=== PATIENT | female | born 1950 ===

== ENCOUNTER 2021-02-12 14:26 | Outpatient (REF) | payer MEDICARE, BC, SELFPAY | END 2021-02-12 14:27 | disposition home or self-care (01) | LOC: LBN 14:26 | PROVIDERS: Visit Provider Nurse Practitioner Family | DX: R35.0 Frequency of micturition (principal) | CPT/HCPCS: 87077; 87086; 87186 ==

== ENCOUNTER 2024-04-16 22:44 | Outpatient (REF) | payer MEDICARE, BC, SELFPAY ==
[2024-04-16 21:54] LABS: WBC >50 HPF (0-5)
[2024-04-16 21:55] LABS: Bacteria Many HPF (Negative); C & S Indicated? Yes; Casts Negative LPF (Negative); Crystals Negative HPF (Negative); Epithelial Cells Rare HPF (Negative); Mucus Negative (Negative); RBC 0-2 HPF (0-2)
== END 2024-04-16 22:45 | disposition home or self-care (01) ==
LOC: LBN 22:44
PROVIDERS: Visit Provider Physician Assistant Medical
DX: N39.0 Urinary tract infection, site not specified (principal)
CPT/HCPCS: 87077; 81015; 87086; 87186

== ENCOUNTER 2024-04-18 15:46 | Emergency (ER) | payer MEDICARE, BC, SELFPAY ==
[2024-04-18] VITALS (70 sets, daily range): BP systolic 104–142; BP diastolic 71–98; PULSE 71–88; RESP 6–20; TEMP 36.5; O2SAT 92–98
--- NOTE | 2024-04-18 15:45 | DI.CT_ITS ---
Exam(s) CT CHEST/ABD/PEL W EXAM: CT CHEST/ABD/PEL W CLINICAL HISTORY: fall iceskating, LOC, nausea vomiting. TECHNIQUE: Imaging Protocol: Axial computed tomography images with coronal and sagittal reformatted images were created and reviewed CONTRAST MATERIAL: Intravenous: Omnipaque 350 Contrast volume:100 ml Oral: None COMPARISON: No exams were available for comparison FINDINGS: CHEST: LUNGS: No evidence of lung contusion or pleural effusion or pneumothorax. Incidentally noted is a no ncalcified nodule in the right middle lobe measuring 5 mm. Small 2 millimeter calcified granulomas n oted in the anterior segment left upper lobe. No findings in trachea and mainstem bronchi.. MEDIASTINUM: No evidence of sternal fracture nor mediastinal hematoma. Bilateral saline breast impla nts are noted. Implant capsular calcification on the right is noted and the right implant appears pa rtially ruptured, age indeterminate.. There is nodule in the left thyroid lobe noted, taller than wi daron in the transverse plane.No hilar nor mediastinal adenopathy evident. CARDIAC: Heart size is normal. There is no pericardial effusion.Caliber of the thoracic aorta is upp er normal limits. No dissection. OSSEOUS: No fractures evident. No osseous lesions.. ABDOMEN: There is no ascites. LIVER: Findings in the upper aspect of the right hepatic lobe are most probably developmental cleft m ore so than an acute laceration. No focal findings in the left hepatic lobe. No a Paddock lesions n or dilated intrahepatic ducts. GALLBLADDER/BILIARY: No obvious gallbladder pathology. CBD is not dilated. PANCREAS: No evidence of pancreatic mass nor dilatation of the pancreatic duct. SPLEEN: Spleen is intact. Normal size. No lacerations. Splenic and portal veins are patent. No sp lenic lesions. ADRENALS: There are no significant adrenal masses. KIDNEYS: No evidence of renal laceration or subcapsular hematomas.. No calculi nor hydronephrosis. No solid renal masses. Small cyst in the lateral cortex of the right kidney noted which does not req uire further workup. ABDOMINAL AORTA: Abdominal aorta is not enlarged. LYMPH NODES: There is no retroperitoneal nor paraaortic adenopathy. ABDOMINAL WALL: There is absence of the left rectus abdominus muscle which is probably developmental. GI: No evidence of mesenteric nor bowel wall hematoma. No bowel obstruction. Right side of the colo n and transverse colon are collapsed. PELVIS: LYMPH NODES: There is no intrapelvic nor inguinal adenopathy. GI: No evidence of appendicitis.No evidence of sigmoid diverticulitis. URINARY BLADDER: No calculi nor masses evident no intraluminal thrombi. REPRODUCTIVE: Lobulated and calcified uterus containing fibroids. No ominous adnexal masses OSSEOUS: No fractures. IMPRESSION: 1. No acute intrathoracic trauma sequelae in the lungs in great vessels. 2. Bilateral saline breast implants are noted. The right implant appears partially ruptured, age ind eterminate. This implant also exhibits capsular calcification. 3. No acute his skin trauma sequelae in the abdomen and pelvis 4. Other incidental findings in the chest, abdomen, and pelvis as described above. RADIATION DOSE DELIVERED: 558.64mGy.cm Total DLP DATA REPOSITORY: All CT scans at this facility are submitted to the National Radiology Data Registry (NRDR) Dose Index Registry (DIR) with the [employer] (ACR). RADIATION OPTIMIZATION: All CT scans at this facility use at least one of these dose optimization te chniques: automated exposure control; mA and/or kV adjustment per patient size (includes targeted exa ms where dose is matched to clinical indication); or iterative reconstruction.
--- NOTE | 2024-04-18 15:47 | DI.CT_ITS ---
Exam(s) CT HEAD CERVICAL SPINE WO EXAM: CT HEAD CERVICAL SPINE WO CLINICAL HISTORY: fall, LOC, vomiting. TECHNIQUE: Imaging Protocol: Axial computed tomography images with coronal and sagittal reformatted images were created and reviewed COMPARISON: No exams were available for comparison FINDINGS: BRAIN: There is a basal skull fracture extending across the right and left occipital bones. No depression There is a small intra-axial hemorrhage in the right occipital lobe which measures 6 x 7 mm and with minimal surrounding edema/mass effect. This is most probably hemorrhagic contusion and another simil ar finding is seen just posterior to the right sylvian fissure, measuring approximately 3 mm. Anteriorly there is abnormal hyperdensity consistent with subarachnoid blood and cortical sulci hemor rhage in the right frontal region, and there is also an area of extra-axial hemorrhage above the sell a turcica in the region of the anterior communicating artery. This abnormal hyperdensity at this lev el measures 9 cm AP as seen on the sagittal images x 3 cm wide x 5 cm craniocaudal. No blood within the lateral ventricles. No shift of midline structures. No obvious territorial infa rct. No large extra-axial collection such as epidural nor subdural hematoma. CERVICAL SPINE: There is no evidence of fracture nor listhesis. C1 arch and odontoid are intact. No significant pre vertebral soft tissue swelling. There is mild reversal of the normal curvature. There is advanced c hronic disc space narrowing at C 4-5, C5-6, as well as some narrowing at C6-7. There facet arthropathy at C2-3 and C3-4 levels. No facet malalignment. There is no significant facet joint malalignment. No significant osseous lesions evident. IMPRESSION: There is a nondepressed occipital skull fracture involving both except the lobes and reaching the cor tical surface of the foramen magnum on the right side. There is no pneumocephalus. However, there i s a 6 x 7 mm hemorrhagic contusion in the right occipital lobe (intra-axial) and there is subarachnoi d and cortical sulci blood evident over the right frontal lobe, probably contrecoup-type. There is a lso a an extra-axial hemorrhage in the inferior aspect of the interhemispheric fissure just above the pituitary fossa measuring 9 x 3 x 5 mm. This is in the region of the anterior communicating artery. Brings to mind the possibly that there may be a pre-existing aneurysm at this level. No evidence of acute cervical spine fracture, malalignment, nor acute compromise of the cervical spin al canal. Multilevel degenerative disc disease and facet arthropathy noted. First read by [facility]. RADIATION DOSE DELIVERED: 1,240.34mGy.cm Total DLP DATA REPOSITORY: All CT scans at this facility are submitted to the National Radiology Data Registry (NRDR) Dose Index Registry (DIR) with the [employer] (ACR). RADIATION OPTIMIZATION: All CT scans at this facility use at least one of these dose optimization te chniques: automated exposure control; mA and/or kV adjustment per patient size (includes targeted exa ms where dose is matched to clinical indication); or iterative reconstruction.
--- NOTE | 2024-04-18 16:12 | ED.GENADUL_ITS ---
Discharge Plan Discharge Details Chief Complaint: HeadInjury Primary Care Provider: Unknown,Unknown ED Provider: Thad Mckeon Home Meds and New Rx's Prescriptions: No Action citalopram [Celexa] 10 mg tablet 10 mg PO DAILY HPI General Date/Time Provider Initiated Documentation: 04/18/24 15:47 . HPI Narrative: 75-year-old female history of remote breast cancer in remission presents after fall on ice while ice-skating, hitting back of head loss of consciousness, vomiting and route per EMS patient denies blood thinner use Related Data Home Medications ?Medication ?Instructions ?Recorded ?Confirmed citalopram 10 mg tablet (Celexa) 10 mg PO DAILY 04/18/24 04/18/24 Allergies Allergy/AdvReac Type Severity Reaction Status Date / Time No Known Allergies Allergy Unverified 04/18/24 15:54 General Stated Complaint: Fall/Non TraumaCriteria ZACHARY: 3 Exam Narrative Exam Narrative: Alert although uncomfortable appearing actively vomiting on arrival Pupils round reactive equal to light Moist mucous membranes tolerating secretions Normal voice no stridor no respiratory distress normal lung sounds equal bilaterally no wheezes rales or rhonchi Normal heart sounds no murmurs rubs or gallops Abdomen soft nontender nondistended Stable pelvis Alert interactive cranial nerves II through XII intact 5 of 5 strength upper and lower extremities bilaterally, sensation equal bilaterally, normal speech Normal perfused extremities no peripheral edema Course Vital Signs Vital signs: Vital Signs Temperature 36.5 C 04/18/24 15:54 Pulse 78 04/18/24 15:54 Respiratory Rate 16 04/18/24 15:54 Pulse Oximetry 97 04/18/24 15:54 Temperature 36.5 C 04/18/24 15:54 Temperature Source Temporal Artery Scan 04/18/24 15:54 Pulse 78 04/18/24 15:54 Respiratory Rate 16 04/18/24 15:54 Respiratory Effort Normal, Non-Labored 04/18/24 16:01 Blood Pressure Position Supine 04/18/24 15:54 Pulse Oximetry 97 04/18/24 15:54 Oxygen Delivery Method Room Air 04/18/24 15:54 Oxygen Flow Rate 0 04/18/24 15:54 Pain Level 8 04/18/24 15:54 Comment headache/nausea, given 4mg zofran 04/18/24 15:54 Medical Decision Making 75-year-old female history of remote breast cancer in remission presents after slipping on ice falling backwards while a skating sustaining posterior head injury, with loss of consciousness for a couple of minutes per bystanders, vomiting and route per EMS, no blood thinner use, airway intact breathing and circulation intact, patient c-collar, GCS 15, patient exposed completely no external signs of abrasions lacerations or ecchymosis, pelvis is stable no midline spinal tenderness step-off crepitus or deformity, cranial nerves intact pupils normal, no motor or sensory deficits, however given history physical and age obtain CT head to assess for intracranial hemorrhage muscles consider thoracoabdominal trauma although no external signs of thoracoabdominal trauma such as ecchymosis abrasion or peritoneal signs will provide analgesia patient received antiemetics and route, disposition pending results and imaging 17: 03 evidence of traumatic subarachnoid and intraparenchymal bleed occipital as well as occipital skull fracture, CT chest abdomen pelvis unremarkable for traumatic injuries. Patient josé miguel neurologically intact hemodynamically stable. No cervical spine injury, taken out of c-collar. I have contacted [facility] transfer center to speak with neurosurgical team/trauma team 19: 52 discussed case with neurosurgeon Dr. Tucker at [facility] who recommends repeat CT with CT venogram at 6 hours to assess for any change in hemorrhagic burden as well as assess for any sinus venous thrombosis or vascular injury given extent of skull fracture. Recommending loading 2 g of Keppra and continuing 500 mg twice daily for 7 days. Disposition pending reassessment reimaging and rediscussion with neurosurgery 23: 53 repeat imaging has been completed awaiting callback from [facility] neurosurgery for recommendations; patient resting comfortably no acute distress. Hemodynamically stable. Neurologically intact. Quality:[facility] Health Related Social Needs: No Data to Display [facility] Social History Smoking/Tobacco Use Status: Never Smoking risk assessment performed?: Yes Alcohol Intake: never Drug use: Never Housing: house Do you feel safe at home: Yes Do you feel safe in your relationship?: Yes
[2024-04-18] MEDS: Omnipaque 350 MG/ML 100 ML BTL IJ (16:13)
[2024-04-18] MEDS: Normal Saline - Diluent 50 ML VIAL IJ (16:14)
[2024-04-18] MEDS: ACETAMINOPHEN 1,000 MG/100 ML BAG 400 MG IVPB (16:22)
--- NOTE | 2024-04-18 16:30 | DI.VRAD_ITS ---
PROCEDURE INFORMATION: Exam: CT Chest With Contrast; Diagnostic Exam date and time: 04/18/2024 4:03 PM Age: 75 years old Clinical indication: Injury or trauma; Blunt; Patient HX: Fall while skating, loc with vomiting TECHNIQUE: Imaging protocol: Diagnostic computed tomography of the chest with contrast. COMPARISON: CT HEAD CERVICAL SPINE WO 04/18/2024 3:58 PM FINDINGS: Lungs: Unremarkable. No consolidation. No masses. Pleural spaces: Unremarkable. No pneumothorax. No pleural effusion. Heart: Unremarkable. No cardiomegaly. No pericardial effusion. Lymph nodes: Unremarkable. No enlarged lymph nodes. Vasculature: Unremarkable. No aortic aneurysm. Diaphragm: Small hiatal hernia. Bones/joints: Unremarkable. No acute fracture. Soft tissues: Bilateral breast implants. IMPRESSION: No evidence for acute posttraumatic abnormality. PROCEDURE INFORMATION: Exam: CT Abdomen And Pelvis With Contrast Exam date and time: 04/18/2024 4:03 PM Age: 75 years old Clinical indication: Injury or trauma; Blunt; Patient HX: Fall while skating, loc with vomiting TECHNIQUE: Imaging protocol: Computed tomography of the abdomen and pelvis with contrast. COMPARISON: No relevant prior studies available. FINDINGS: Liver: Mild hepatomegaly. Gallbladder and biliary ducts: Normal. No calcified stones. No ductal dilation. Pancreas: Normal. No ductal dilation. Spleen: Normal. No splenomegaly. Adrenal glands: Normal. No mass. Kidneys and ureters: Normal. No hydronephrosis. Stomach and bowel: Unremarkable. No obstruction. No mucosal thickening. Appendix: No evidence of appendicitis. Intraperitoneal space: Unremarkable. No free air. No significant fluid collection. Vasculature: Moderate atherosclerotic change present in the vasculature. Lymph nodes: Unremarkable. No enlarged lymph nodes. Urinary bladder: The bladder is not well distended. Reproductive: Fibroid uterus. Bones/joints: Unremarkable. No acute fracture. Soft tissues: Unremarkable. IMPRESSION: No evidence for acute posttraumatic abnormality. Dictated and Authenticated by: Carolina Mcclelland MD. Ordering:SHIRLEY Oneil MD
--- NOTE | 2024-04-18 16:37 | DI.VRAD_ITS ---
Addendum created by Preeti Kee MD on 04/18/2024 4:48:40 PM EDT: THIS REPORT CONTAINS FINDINGS THAT MAY BE CRITICAL TO PATIENT CARE. The findings were verbally communicated via telephone conference with Thad Mckeon at 4:48 PM EDT on 04/18/2024. The findings were acknowledged and understood. Initial report created on 04/18/2024 4:36:30 PM EDT: PROCEDURE INFORMATION: Exam: CT Head Without Contrast Exam date and time: 04/18/2024 3:58 PM Age: 75 years old Clinical indication: Other: Fall, loc, vomiting TECHNIQUE: Imaging protocol: Computed tomography of the head without contrast. Radiation optimization: All CT scans at this facility use at least one of these dose optimization techniques: automated exposure control; mA and/or kV adjustment per patient size (includes targeted exams where dose is matched to clinical indication); or iterative reconstruction. COMPARISON: No relevant prior studies available. FINDINGS: Brain: There is scattered subarachnoid hemorrhage most prominent on the right particularly noted adjacent to the anterior and inferior right frontal lobe. Minimal hemorrhage is also noted inferior aspect of the interhemispheric fissure adjacent to the [id number] for example best seen on image 33 series 6. There is subtle sulcal hyperdensity also seen at the left sylvian fissure. There is a small hemorrhage noted in the right occipital lobe measuring approximately 7 mm in maximum diameter likely representing a small hemorrhagic contusion. There is no significant shift or herniation. There is no acute cortical or major vascular territory infarct. No large extra-axial collections are identified. Intracranial vascular calcification is noted Cerebral ventricles: No significant ventricular enlargement/hydrocephalus. Incidental note is made of cavum septum pellucidum and vergae. Paranasal sinuses: There is no significant sinus opacification or fluid level. Mastoid air cells: No significant mastoid or middle ear opacification Orbital cavities: Patient has had prior lens replacement. There is no significant orbital abnormality Bones: There is nondisplaced basilar skull fracture extending from the left to the right occipital bone and to the right aspect of the foramen magnum Soft tissues: There is left occipital subcutaneous edema/hematoma. IMPRESSION: 1. Nondepressed basilar/occipital skull fracture extending from left to right as described. It extends to the foramen magnum on the right.. No associated pneumocephalus. 2. Subarachnoid hemorrhage greater on the right than the left. 3. Small right occipital intra-axial hemorrhage likely small hemorrhagic contusion. PROCEDURE INFORMATION: Exam: CT Cervical Spine Without Contrast Exam date and time: 04/18/2024 3:58 PM Age: 75 years old Clinical indication: Other: Fall, loc, vomiting TECHNIQUE: Imaging protocol: Computed tomography of the cervical spine without contrast. Radiation optimization: All CT scans at this facility use at least one of these dose optimization techniques: automated exposure control; mA and/or kV adjustment per patient size (includes targeted exams where dose is matched to clinical indication); or iterative reconstruction. COMPARISON: No relevant prior studies available. FINDINGS: Bones: There is reversal of the cervical lordosis which may be positional or due to spasm. There is mild anterolisthesis of C3 with respect to C4. There is no evidence of an acute fracture in the cervical spine. There is no decrease of vertebral body height. There is no acute or destructive bony abnormality. There is multilevel disc space narrowing most prominent at C4-C5, C5-C6 . There are disc osteophyte complexes, spondylitic changes of the endplates, uncovertebral and facet arthropathy. There is narrowing of the central canal at the level of the disc spaces most prominent at C4-C5, C5-C6. At C5-C6 there is some ossification of the posterior longitudinal ligament. Degenerative changes also lead to foraminal narrowing most prominent at C5-C6. Lungs: There is pleural thickening at the left lung apex and minimal pleural-parenchymal scarring noted bilaterally. There is no significant consolidation of the lung apices Lymph nodes: Small cervical nodes are noted likely reactive Soft tissues: There is no evidence of a discrete soft tissue mass in the neck IMPRESSION: 1. No acute fracture in the cervical spine 2. Cervical spondylosis, degenerative disc disease most prominent at C4-C5, C5-C6 Dictated and Authenticated by: Preeti Kee MD. Ordering:SHIRLEY Oneil MD
[2024-04-18 16:44] LABS: Abs Immature Grans 0.03 10^3/uL (0.0-0.06); Absolute Basophil Count 0.03 10^3/uL (0.0-0.2); Absolute Lymphocyte Count 1.34 10^3/uL (1.2-3.4); Absolute Monocyte Count 0.42 10^3/uL (0.1-0.8); Absolute Neutrophil Count 5.43 10^3/uL (1.2-6.7); Basophils % 0.4 %; Eosinophils % 1.4 %; HCT 37.2 % (36.0-46.0); HGB 12.5 g/dL (11.2-15.7); Immature Grans % 0.4 %; Lymphocytes % 18.2 %; MCH 29.3 pg (27.0-33.0); MCHC 33.6 % (32.0-36.0); MCV 87 fL (80-95); MPV 10.1 fL (8.0-11.0); Monocytes % 5.7 %; Neutrophils % 73.9 %; Platelet Count 187 10^3/uL (130-400); RBC 4.26 10^6/uL (3.93-5.22); WBC 7.35 10^3/uL (4.4-10.8)
[2024-04-18 16:59] LABS: INR 1.1 (0.9-1.1); PTT Activated 24.5 sec (23.6-32.8); Prothrombin Time 11.2 sec (9.1-11.1)
[2024-04-18 17:08] LABS: ALT 25 U/L (14-59); AST 15 U/L (15-37); Albumin 3.2 g/dL (3.4-5.0); Alkaline Phosphatase 32 U/L (46-116); Anion Gap 9.1 mmol/L (3-11); BUN 15 mg/dL (7-18); CO2 26.9 mmol/L (21.0-32.0); CREATININE 0.7 mg/dL (0.55-1.02); Calcium 8.7 mg/dL (8.5-10.1); Chloride 100 mmol/L (98-107); Glucose 131 mg/dL (74-106); Potassium 3.9 mmol/L (3.5-5.1); Sodium 136 mmol/L (136-145); Total Protein 6.6 g/dL (6.4-8.2)
[2024-04-18] MEDS: levETIRAcetam 2,000 MG in Normal Saline 100 ML 400 MG IVPB (19:58)
--- NOTE | 2024-04-18 21:45 | DI.CT_ITS ---
Exam(s) CT HEAD WO/W EXAM: CT HEAD WO/W CLINICAL HISTORY: assessing post trauma, ICH and skull fracture. TECHNIQUE: Imaging Protocol: Both noninfused and contrast infused CT scans of the brain were perform ed. IV Contrast Dose =75 cc Axial computed tomography images with coronal and sagittal reformatted images were created and review ed COMPARISON: CT CT HEAD CERVICAL SPINE WO from 04/18/2024 FINDINGS: The previously described occipital bone nondepressed fracture is again noted, unchanged. The previously described intra-axial hemorrhagic contusion in the right occipital lobe is again noted . Does not appear to have significantly increased in size. Cortical and subarachnoid blood in the right frontal lobe appears relatively stable. There is some n ew subarachnoid blood evident along the posterior margins of both sylvian fissures and in a few left parietal sulci The previously described blood in the inferior aspect of the interhemispheric fissure above the pitui tary fossa has decreased slightly. There is no obvious aneurysm at this location. Size of the ventricles is not increased and septum cavum pellucidum again noted. IMPRESSION: Compared to the prior recent study there has been some increase in the amount of multifocal subarachn oid hemorrhage. The hemorrhagic contusion in the right occipital lobe appears stable. No aneurysms evident.. RADIATION DOSE DELIVERED: 1,809.16mGy.cm Total DLP DATA REPOSITORY: All CT scans at this facility are submitted to the National Radiology Data Registry (NRDR) Dose Index Registry (DIR) with the [employer] (ACR). RADIATION OPTIMIZATION: All CT scans at this facility use at least one of these dose optimization te chniques: automated exposure control; mA and/or kV adjustment per patient size (includes targeted exa ms where dose is matched to clinical indication); or iterative reconstruction.
--- NOTE | 2024-04-18 22:43 | DI.VRAD_ITS ---
Addendum created by Matt Milner MD on 04/19/2024 12:12:34 AM EDT: THIS REPORT CONTAINS FINDINGS THAT MAY BE CRITICAL TO PATIENT CARE. The findings were verbally communicated via telephone conference with Thad Mckeon at 12:12 AM EDT on 04/19/2024. The findings were acknowledged and understood. Initial report created on 04/18/2024 10:43:03 PM EDT: PROCEDURE INFORMATION: Exam: CT Head Without And With Contrast Exam date and time: 04/18/2024 9:55 PM Age: 73 years old Clinical indication: Injury or trauma; Fall; Blunt trauma (contusions or hematomas); With loss of consciousness; Injury details: Assessing post trauma, ich and skull fracture TECHNIQUE: Imaging protocol: Computed tomography of the head without and with contrast. 3D rendering (Not supervised by radiologist): MIP and/or 3D reconstructed images were created by the technologist. COMPARISON: CT HEAD CERVICAL SPINE WO 04/18/2024 3:58 PM FINDINGS: Brain: Hyperdense subarachnoid blood layers along the posterior margins of both sylvian fissures with additional scattered subarachnoid blood seen involving a few right frontal lobe sulci anteriorly and a few left parietal sulci. Suspected focal hemorrhagic contusion again seen involving subcortical white matter at the right occipital pole. No other sites of acute intracranial hemorrhage are detected. No acute transcortical infarction is evident. Cerebral ventricles: Ventricular and cisternal spaces are stable in size and configuration and there is no midline shift or hydrocephalus seen. Paranasal sinuses: Grossly clear throughout. Mastoid air cells: Grossly clear bilaterally. Bones: A nondepressed fracture again involves the occipital bone posteriorly, extending from the superior left occipital bone to the left of midline and passing inferiorly along the right lateral margin of the foramen magnum. No other acute fractures are identified. Soft tissues: Unremarkable. IMPRESSION: 1. Multifocal scattered subarachnoid hemorrhage again identified with suspected focal hemorrhagic contusion also again seen at the right occipital pole. 2. A nondepressed fracture again involves the occipital bone posteriorly, extending from the superior left occipital bone to the left of midline and passing inferiorly along the right lateral margin of the foramen magnum. No other acute fractures are identified. Dictated and Authenticated by: Matt Milner MD. Ordering:P.DISST Linda Oneil MD
[2024-04-19] VITALS (16 sets, daily range): BP systolic 106–129; BP diastolic 68–80; PULSE 74–81; RESP 13–16; O2SAT 93–96
--- NOTE | 2024-04-19 00:38 | ED.PROG_ITS ---
Date of service: 04/19/24 Time of Service: 00:38 Medical Decision Making Patient resting comfortably no acute distress hemodynamically stable neurologically intact. Attempted to obtain CT venogram after discussing case with radiology department here in house however due to timing of contrast bolus venous system and dural sinuses were ineffectively opacified. Discussed follow- up imaging with neurosurgical team at [facility]. Neurosurgeon recommending 24- hour inpatient observation for IV hydration as this would be the treatment for any dural sinus pathology at this stage. I expressed that we do not have the capability to observe this patient given lack of neurosurgical services, lack of ICU beds and the concern that given subarachnoid and intraparenchymal hemorrhage patient could deteriorate from a neurologic standpoint and may require neurosurgical intervention. After some time discussing this case I offered to place neurosurgeon in contact with our hospitalist in-house to further discuss the safest disposition for this patient. Dr. Souza has been contacted and will be speaking with neurosurgeon at [facility]. 12: 52 for further discussion the decision was made to transfer patient to [facility] ED to ED for evaluation by neurosurgical team and close monitoring of facility with neurosurgical capabilities as well as repeat imaging with CT venogram protocol. Accepting physician Dr. Jimenez. Patient resting comfortably no acute distress neurologically intact amenable to transfer. Quality:SDOH Health Related Social Needs: No Data to Display Sign Out Sign Out Data: Sign Out Comment: traumatic subarachnoid, skull fracture, repeat CT obtained, awaiting neurosurg callback for dispo recs Last updated by Thad Mckeon MD at 04/18/24 23:54 Discharge Plan Disposition Patient Disposition: Transfer-Acute Inpatient Care Specific Acute Inpt Facility: [facility] Condition: Stable Discharge Details Chief Complaint: HeadInjury Clinical Impression: Traumatic intraparenchymal hemorrhage, Subarachnoid hemorrhage, Skull fracture Primary Care Provider: Unknown,Unknown ED Provider: Thad Mckeon Home Meds and New Rx's Prescriptions: No Action citalopram [Celexa] 10 mg tablet 10 mg PO DAILY
[2024-04-19] MEDS: MORPHine 4 MG/ML SYR IVP (01:55)
[2024-04-19] MEDS: Ondansetron 4 MG/2 ML VIAL (01:58)
== END 2024-04-19 02:09 | disposition short-term general hospital (02) ==
PROVIDERS: Emergency Provider Emergency Medicine
DX: S06.371A Contusion, laceration, and hemorrhage of cerebellum with loss of consciousness of 30 minutes or less, initial encounter (principal); S06.6X1A Traumatic subarachnoid hemorrhage with loss of consciousness of 30 minutes or less, initial encounter; S02.119A Unspecified fracture of occiput, initial encounter for closed fracture; W00.0XXA Fall on same level due to ice and snow, initial encounter; Y93.21 Activity, ice skating; Y92.838 Other recreation area as the place of occurrence of the external cause
CPT/HCPCS: 00123; 74177; 80053; 86850; 86900; 86901; 96365; 96367; 96375; 99285; 70450; 70470; 71260; 72125; 85025; 85610; 85730; J0131; J1953; J2270; J2405; J3490